=== PATIENT | female | born 1990 | race Caucasian/White ===

== ENCOUNTER → 2018-01-23 | Emergency (ER) | payer OTHER ==
[~2018-01-23] VITALS: Ht 162.6 cm; Wt 77.1 kg
== END | disposition home or self-care (01) ==
LOC: ER 21:30
DX: R53.1 Weakness (principal); F41.8 Other specified anxiety disorders

== ENCOUNTER 2024-08-10 09:50 | Outpatient (CLI) | payer OTHER ==
[2024-08-10 09:15] VITALS: BP 109/69
[2024-08-10] MEDS ORDERED: MORPHINE SULFATE 4 MG/ML VIAL IV PRN (10:30)
[2024-08-10] MEDS ORDERED: RINGERS SOLUTION,LACTATED 1,000 ML IV SCH (10:30)
[2024-08-10 11:16] LABS: URINE APPEARANCE Clear; URINE BILIRRUBIN Negative (NEGATIVE); URINE BLOOD Negative; URINE COLOR Yellow; URINE KETONE Trace (NEGATIVE); URINE LEUKOCYTE Negative; URINE NITRATE Negative; URINE PROTEIN Trace (NEGATIVE); URINE UROBILINOGEN 0.2 E.U./dl
[2024-08-10 11:18] LABS: HEMATOCRIT 30.5 % (36.0-45.00); HEMOGLOBIN 10.3 g/dL (12.0-15.00); MEAN CORPUSCULAR HEMOGLOBIN 31.7 pg (27.00-32.0); MEAN CORPUSCULAR HGB CONC 33.8 g/dl (32.0-36.0); PLATELET COUNT 266 K/uL (150-450); RED BLOOD COUNT 3.24 M/uL (4.00-6.00); RED CELL DISTRIBUTION WIDTH 12.9 % (11.5-14.5)
[2024-08-10 11:20] LABS: URINE BACTERIA 3672.6 uL (0.0-1933); URINE RBC 7.6 uL (0.0-20.8); URINE WBC 20.4 uL (0.0-23.2)
[2024-08-10 11:31] LABS: URINE CAST 0.61 uL (0.0-1.40); URINE GLUCOSE 100 MG/DL (NEGATIVE)
[2024-08-10 11:36] LABS: INR < 0.93; PARTIAL THROMBOPLASTIN TIME 23.6 SECONDS (22.0-34.0); PROTHROMBIN TIME 10.2 SECONDS (9.0-11.5)
[2024-08-10 11:47] VITALS: BP 109/69
[2024-08-10] MEDS ORDERED: PRENATABS RX T1 EACH PO (12:19)
[2024-08-10] MEDS ORDERED: CEFAZOLIN SODIUM 1,000 MG VIAL IV NR (12:30)
[2024-08-10 16:00] VITALS: BP 105/62
[2024-08-10 19:37] VITALS: BP 107/67
[2024-08-10] MEDS ORDERED: CEFAZOLIN SODIUM 1,000 MG VIAL IV SCH (21:00)
[2024-08-10 23:28] VITALS: BP 113/62
[2024-08-11 03:18] VITALS: BP 109/67
[2024-08-11 06:13] VITALS: BP 105/66; O2SAT 96
[2024-08-11 09:05] VITALS: BP 105/66
== END 2024-08-11 09:31 | disposition home or self-care (01) ==
LOC: OBS/DEL 09:50
PROVIDERS: Obstetrics & Gynecology; ATTEND Obstetrics & Gynecology
DX: O26.893 Other specified pregnancy related conditions, third trimester (principal); Z3A.38 38 weeks gestation of pregnancy; R10.2 Pelvic and perineal pain; M54.50 Low back pain, unspecified

== ENCOUNTER 2024-08-20 09:15 | Inpatient (IN) | payer OTHER ==
[~2024-08-20] VITALS: Ht 162.6 cm; Wt 85.3 kg
[~2024-08-20 09:15] MED LIST: PRENATABS RX T1 EACH PO
[2024-08-20 13:44] LABS: URINE APPEARANCE Cloudy; URINE BILIRRUBIN Negative (NEGATIVE); URINE BLOOD Negative; URINE COLOR Yellow; URINE KETONE Trace (NEGATIVE); URINE LEUKOCYTE Negative; URINE NITRATE Negative; URINE PROTEIN Trace (NEGATIVE)
[2024-08-20 13:48] LABS: URINE BACTERIA 2586.5 uL (0.0-1933); URINE EPITHELIAL CELLS 144.7 uL (0.0-38.8); URINE RBC 5.8 uL (0.0-20.8); URINE WBC 23.4 uL (0.0-23.2)
[2024-08-20 13:54] LABS: HEMATOCRIT 30.5 % (36.0-45.00); HEMOGLOBIN 10.8 g/dL (12.0-15.00); MEAN CELL VOLUME 92.6 fL (80.00-100.00); MEAN CORPUSCULAR HEMOGLOBIN 32.8 pg (27.00-32.0); MEAN CORPUSCULAR HGB CONC 35.4 g/dl (32.0-36.0); PLATELET COUNT 271 K/uL (150-450); RED CELL DISTRIBUTION WIDTH 13.2 % (11.5-14.5)
[2024-08-20 14:08] LABS: INR < 0.93; PARTIAL THROMBOPLASTIN TIME 23.1 SECONDS (22.0-34.0); PROTHROMBIN TIME 10.1 SECONDS (9.0-11.5)
[2024-08-20 14:12] LABS: URINE CAST 0.45 uL (0.0-1.40); URINE GLUCOSE 100 MG/DL (NEGATIVE)
[2024-08-20 14:13] LABS: URINE YEAST Negative /hpf
[2024-08-20 15:13] LABS: RH POSITIVE
[2024-08-22 05:33] VITALS: BP 127/85
[2024-08-22] MEDS ORDERED: RINGERS SOLUTION,LACTATED 1,000 ML IV SCH (06:00)
[2024-08-22] MEDS ORDERED: CEFAZOLIN SODIUM 1,000 MG VIAL IV SCH ×2 (07:15→20:00)
[2024-08-22 08:13] VITALS: BP 130/80; O2SAT 99
[2024-08-22] MEDS ORDERED: MEPERIDINE HCL/PF 50 MG/ML VIAL IV ONE (09:45)
[2024-08-22] MEDS ORDERED: PROMETHAZINE HCL 25 MG/ML AMPUL IV ONE (09:45)
[2024-08-22 11:50] VITALS: BP 104/69; BP 115/74; O2SAT 100
[2024-08-22] MEDS ORDERED: ERYTHROMYCIN BASE OPHT 1GM EACH TUBE OP ONE (15:00)
[2024-08-22] MEDS ORDERED: OXYTOCIN 20 UNITS/1000ML RL PIGGYBAG IV ONE (15:00)
[2024-08-22] MEDS ORDERED: MORPHINE SULFATE 4 MG/ML VIAL IV ONE ×2 (15:30→16:15)
[2024-08-22] MEDS ORDERED: MEPERIDINE HCL/PF 50 MG/ML VIAL IM PRN (17:00)
[2024-08-22] MEDS ORDERED: PROMETHAZINE HCL 50 MG/ML AMPUL IM PRN (17:00)
[2024-08-22 20:04] VITALS: BP 133/85
[2024-08-22] MEDS ORDERED: FAMOTIDINE/PF 20 MG/2 ML VIAL IV PUSH ONE (20:45)
[2024-08-23 00:48] VITALS: BP 138/80
[2024-08-23 04:13] LABS: HEMOGLOBIN 9.8 g/dL (12.0-15.00); MEAN CELL VOLUME 91.4 fL (80.00-100.00); PLATELET COUNT 244 K/uL (150-450); RED BLOOD COUNT 3.06 M/uL (4.00-6.00); RED CELL DISTRIBUTION WIDTH 13.1 % (11.5-14.5)
[2024-08-23] MEDS ORDERED: FAMOtidine 20 MG TABLET PO SCH (09:00)
[2024-08-23] MEDS ORDERED: OxyCODONE HCL/APAP UD (PERCOCET) PO PRN (11:00)
[2024-08-23] MEDS ORDERED: ACETAMINOPHEN 500 MG GEL..CAP PO PRN (11:00)
[2024-08-23 13:46] VITALS: BP 127/79
[2024-08-23 20:14] VITALS: BP 117/77
[2024-08-24 00:21] VITALS: BP 123/81
[2024-08-24 08:00] VITALS: BP 119/76
[2024-08-24] MEDS ORDERED: IBUPROFEN800 MG PO (08:20)
== END 2024-08-24 14:24 | disposition home or self-care (01) | DRG 788 ==
LOC: LDR 08-22 05:56 → OB/GYN 08-22 05:56 → LDR 08-22 07:31 → OB/GYN 08-22 15:35
PROVIDERS: Specialist; ADMIT Obstetrics & Gynecology; ATTEND Obstetrics & Gynecology
PROC: 0UB00ZZ Excision of Right Ovary, Open Approach (ICD-10-PCS; 2024-08-22)
PROC: 4A1HXCZ Monitoring of Products of Conception, Cardiac Rate, External Approach (ICD-10-PCS; 2024-08-22)
PROC: 10D00Z1 Extraction of Products of Conception, Low, Open Approach (ICD-10-PCS; principal; 2024-08-22 12:15)
DX: O82 Encounter for cesarean delivery without indication (principal); O34.83 Maternal care for other abnormalities of pelvic organs, third trimester; Z3A.39 39 weeks gestation of pregnancy; Z37.0 Single live birth; Z20.822 Contact with and (suspected) exposure to COVID-19; D27.0 Benign neoplasm of right ovary

== ENCOUNTER → 2024-08-20 11:56 | Outpatient (CLI) | payer OTHER | END | disposition home or self-care (01) | LOC: NST 11:56 | PROVIDERS: ATTEND Obstetrics & Gynecology Maternal & Fetal Medicine | DX: Z34.83 Encounter for supervision of other normal pregnancy, third trimester (principal) ==